=== PATIENT | male | born 1935 | race Caucasian/White ===

== ENCOUNTER 2016-09-24 13:55 | Inpatient (IN) ==
[2016-09-24] MEDS ORDERED: ASPIRIN PO STA (14:38)
[2016-09-24 14:51] LABS: BASO% 0.1 % (0.0-0.8); HEMATOCRIT 46.7 % (42.0-52.0); HEMOGLOBIN 14.9 g/dL (14.0-18.0); IMM GRAN# 0.04 X1000 (0.0-0.04); IMM GRAN% 0.3 % (0.0-0.5); LYMPH% 3.9 % (20.5-51.1); MANUAL DIFF NEEDED? NO; MCH 28.9 PG (27-31); MCHC 31.9 g/dL (33-37); MCV 90.5 FL (81-99); MONO# 0.79 X1000 (0.11-0.59); MONO% 5.1 % (1.7-9.3); MPV 11.1 FL (7.4-10.4); NEUT% 90.6 % (42.2-75.2); PLT 169 X1000 (130-400); RBC 5.16 XMIL (4.7-6.1)
[2016-09-24 14:57] LABS: INR 1.06; PROTIME 11.2 Seconds (9.2-11.7)
[2016-09-24 15:09] LABS: AGAP 12; ALKALINE PHOSPHATASE 94 U/L (32-122); BUN 15 mg/dL (8-22); CALCIUM 9.5 mg/dL (8.8-10.2); CHLORIDE 95 mmol/L (98-107); CK PROFILE 132 U/L (24-204); COSMO 276; GOT 29 U/L (10-34); GPT 19 U/L (10-44); MAGNESIUM 1.6 mg/dL (1.5-2.7); POTASSIUM 4.2 mmol/L (3.5-5.1); SODIUM 135 mmol/L (136-145); TCO2 28 mmol/L (25-35); TOTAL BILIRUBIN 0.67 mg/dL (0.20-1.00); TOTAL PROTEIN 7.5 g/dL (6.3-8.3)
--- NOTE | 2016-09-24 15:23 | Diag Imaging Result Doc PS360 ---
EXAM: CHEST-2 VIEWS INDICATION: CP TECHNIQUE: 3 views COMPARISON: 05/25/2015 FINDINGS: The lungs are grossly clear. There is probably a trace effusion at the left lung base. The cardiac silhouette is mildly prominent. The central vasculature is prominent suggesting possible mild pulmonary venous congestion. IMPRESSION: Mild cardiomegaly and suggestion of mild pulmonary venous congestion with a likely trace effusion at the left lung base. Electronically signed by Eddie Carrillo 09/24/2016 3:20 PM
[2016-09-24] MEDS ORDERED: LEVAQUIN 750 MG/D5W 750 MG/150 ML IVPB IV ONE (15:24)
--- NOTE | 2016-09-24 15:25 | EKG Report ---
Test Performed on : 09/24/2016 2:06:18 PM Test Reason : cp Blood Pressure : / mmHG Vent. Rate : 097 BPM Atrial Rate : 097 BPM P-R Int : 142 ms QRS Dur : 108 ms QT Int : 340 ms P-R-T Axes : 074 054 -03 degrees QTc Int : 431 ms Normal sinus rhythm. Possible Left atrial enlargement Possible Inferior infarct (cited on or before 04-AUG-2012) Abnormal ECG When compared with ECG of 26-MAY-2015 17:59, No significant change was found Unconfirmed Result
[2016-09-24] MEDS ORDERED: ZOFRAN PO PRN (15:32)
[2016-09-24] MEDS ORDERED: TYLENOL PO PRN (15:32)
--- NOTE | 2016-09-24 17:13 | HISTORY AND PHYSICAL ---
CHIEF COMPLAINT: Shortness of breath. HISTORY OF PRESENT ILLNESS: This 81-year-old white male presented with worsening shortness of breath over the last 2 days. He had felt feverish but did not have a hard shaking chill. He has more or less of a chronic cough. He denied any orthopnea or PND. Initial emergency room evaluation showed pulmonary venous congestion and a trace effusion. Given his history and the appearance of it is thought the patient likely had pneumonia and he is admitted for such. PAST MEDICAL HISTORY: ALLERGIES: No known drug allergies. SOCIAL HISTORY: He is 1 of 12 children. He is and lives with his . He has support of other family members. PAST SURGICAL HISTORY: 1. Throat cancer x2. 2. Cholecystectomy. 3. Cardiac cath with intervention and stenting in 1991. 4. Neck surgery with implanted hardware for fixation after traumatic fall from a ladder. The patient is a nonsmoker at this point but has over 100 pack-year history. REVIEW OF SYSTEMS: Please see history of present illness. He denies any nausea, vomiting, chest pain, palpitations, dysuria, change in urination pattern. He has had no trouble with bowel movements. PAST MEDICAL HISTORY: 1. Hypercholesterolemia. 2. Hypertension. 3. Chronic pain. 4. Dementia. 5. Throat cancer. 6. Ischemic heart disease with stents. 7. Chronic obstructive pulmonary disease. PHYSICAL EXAMINATION: The patient is alert and oriented. He has poor hearing. HEENT EXAM: Unremarkable. NECK: No JVD or lymphadenopathy noted. LUNGS: Clear to auscultation bilaterally with increased expiratory phase but no wheezing with reasonable air movement which is at his baseline. CARDIOVASCULAR: Regular without appreciable murmur or gallop. ABDOMEN: Benign. Bowel sounds are present, nontender and nondistended. EXTREMITIES: The patient had trace to 1+ edema in lower extremities. NEUROLOGIC: Except for the hearing the patient was neurologically intact and operating at baseline. PSYCHOLOGIC: His level of orientation is at baseline. LABORATORY: White cell count 15.3, hematocrit 46.7. BUN 15 and creatinine 1.02. Glucose 183. ProBNP is 539, troponin and CK were negative. ASSESSMENT AND PLAN: 1. Patient's x-ray and clinical history consistent with pneumonia. We will plan to admit the patient, start antibiotics. He has been pancultured. We will follow serial exams, x-rays and adjust medications as necessary. 2. We will continue patient's home medications as previously. cc: Wes Davies MD
[2016-09-24] MEDS ORDERED: DESYREL PO PRN (19:11)
[2016-09-24] MEDS: XANAX PO SCH (20:31)
[2016-09-24] MEDS: LOPRESSOR PO SCH (20:31)
[2016-09-24] MEDS ORDERED: MEVACOR PO SCH (21:00)
[2016-09-24] MEDS ORDERED: REQUIP PO SCH (21:00)
[2016-09-24] MEDS ORDERED: ARICEPT PO SCH (21:00)
[2016-09-24] MEDS ORDERED: NEURONTIN PO SCH (21:00)
[2016-09-25 07:44] VITALS: BP 139/68
[2016-09-25] MEDS: XANAX PO SCH (10:48)
[2016-09-25] MEDS: LOPRESSOR PO SCH (10:48)
--- NOTE | 2016-09-25 13:54 | DISCHARGE SUMMARY ---
ADMISSION DATE: 09/24/2016 DISCHARGE DATE: 09/25/2016 DISCHARGE DIAGNOSES: 1. Pneumonia, right upper lobe. 2. Fever. 3. Chronic obstructive pulmonary disease with exacerbation. 4. Dementia. HOSPITAL COURSE: This 81-year-old white male presented to the emergency room with fever of 101.4 and worsening shortness of breath. I was never able to get a really straight story on his symptomatology because of his mild to moderate dementia. His is in about the same shape and was able to offer no real history. The patient's son was present at admission and stated that his mother called and said that Mr. Galvin was short of breath and to take him to the emergency room. The patient was admitted to the hospital after having full cultures done and started on antibiotics immediately. He did not have any fever for the next 24 hours. He was very desirous to go home, and his was there and stated that she was ready to take him home. The patient's exam on the day of discharge showed clear lungs operating at baseline levels of function. His mentation was good. He did not have any fever. He is discharged home with all of his same medications onboard. We added Levaquin 500 mg daily for 6 days. He is to follow up next week. cc: Wes Davies MD
[2016-09-25] MEDS ORDERED: LEVAQUIN 500 MG/D5W 500 MG/100 ML IVPB IV SCH (15:00)
== END 2016-09-25 12:40 | disposition home or self-care (01) ==
LOC: ED 13:55 → 4N 16:55
PROVIDERS: ADMIT Internal Medicine; ATTEND Internal Medicine